=== PATIENT | female | born 1980 ===

== ENCOUNTER 2018-09-15 12:16 | Emergency (ER) | payer BC, OTHER ==
--- NOTE | 2018-09-15 13:37 | UC ---
Respiratory Complaint HPI - HPI Summary HPI Summary: 4 to 5 day history of fever, congestion, increased sinus pain and cough. Progressive laryngitis. Fever has resolved. Other family members with influenza. - History of Current Complaint Chief Complaint: UCRespiratory Stated Complaint: SORE THROAT, COUGH, CONGESTION Time Seen by Provider: 09/15/18 13:29 Hx Obtained From: Patient Hx Last Menstrual Period: "Almost 28 days ago" Onset/Duration: Gradual Onset, Lasting Days - 5 Timing: Constant Severity Initially: Moderate Severity Currently: Moderate Pain Intensity: 0 Character: Cough: Nonproductive Associated Signs And Symptoms: Positive: URI, Nasal Congestion, Hoarseness, Sinus Discomfort - Allergies/Home Medications Allergies/Adverse Reactions: Allergies Allergy/AdvReac Type Severity Reaction Status Date / Time Penicillins Allergy Unknown Verified 09/15/18 13:18 Reaction Details Home Medications: Home Medications Cholecalciferol TAB* [Vitamin D TAB*] 2,000 units PO DAILY 09/15/18 [History Confirmed 09/15/18] Levothyroxine TAB* [Synthroid TAB*] 50 mcg PO DAILY 09/15/18 [History Confirmed 09/15/18] Lisinopril TAB* [Prinivil TAB*] 10 mg PO DAILY 09/15/18 [History Confirmed 09/15] LoraTADine TAB(NF) [Claritin 10 MG TAB(NF)] 10 mg PO DAILY 09/15/18 [History Confirmed 09/15/18] PMH/Surg Hx/FS Hx/Imm Hx Previously Healthy: Yes Endocrine History: Thyroid Disease Cardiovascular History: Hypertension - Surgical History Surgical History: None - Family History Known Family History: Positive: Non-Contributory - Social History Occupation: Employed Full-time Lives: With Family Alcohol Use: Occasionally Substance Use Type: None Smoking Status (MU): Never Smoked Tobacco Review of Systems All Other Systems Reviewed And Are Negative: Yes Constitutional: Positive: Fatigue Skin: Positive: Negative Eyes: Positive: Negative ENT: Positive: Nasal Discharge, Sinus Pain/Tenderness, Other - laryngitis Respiratory: Positive: Cough Cardiovascular: Positive: Negative Gastrointestinal: Positive: Negative Genitourinary: Positive: Negative Motor: Positive: Negative Neurovascular: Positive: Negative Musculoskeletal: Positive: Negative Neurological: Positive: Negative Psychological: Positive: Negative Is Patient Immunocompromised?: No Physical Exam Triage Information Reviewed: Yes Appearance: No Pain Distress, Ill-Appearing - looks mildly unwell Vital Signs: Initial Vital Signs Temp 97.7 F 09/15/18 13:16 Pulse 80 09/15/18 13:16 Resp 16 09/15/18 13:16 BP 120/73 09/15/18 13:16 Pulse Ox 100 09/15/18 13:16 Eyes: Positive: Conjunctiva Clear ENT: Positive: Pharynx normal, Sinus tenderness Dental Exam: Normal Neck: Positive: Supple, Nontender, No Lymphadenopathy Respiratory: Positive: Lungs clear, Normal breath sounds Cardiovascular: Positive: RRR, No Murmur Neurological Exam: Normal Neurological: Positive: Alert, Muscle Tone Normal Psychological Exam: Normal Skin Exam: Normal UC Diagnostic Evaluation - Laboratory O2 Sat by Pulse Oximetry: 100 Respiratory Course/Dx - Course Course Of Treatment: symptomatic treatment of viral illness - Differential Dx/Diagnosis Differential Diagnosis/HQI/PQRI: Influenza, Sinusitis Provider Diagnosis: Viral syndrome Discharge - Sign-Out/Discharge Documenting (check all that apply): Patient Departure All imaging exams completed and their final reports reviewed: No Studies - Discharge Plan Condition: Stable Disposition: HOME Patient Education Materials: Viral Syndrome (ED) Referrals: Annamarie Ahuja [Primary Care Provider] - Additional Instructions: It is likely that you have had flu with complicating sinus pressure, but antibiotics are not indicated at this time. Continue use of over the counter cough suppressants, acetaminophen for pain or recurrent fever. Adding flonase spray and/or saline nose spray will help to relieve sinus pressure; you could also use over the counter phenylephrine as a decongestant. - Billing Disposition and Condition Condition: STABLE Disposition: Home
== END 2018-09-15 14:03 | disposition home or self-care (01) ==
LOC: UCCORT 12:16
DX: B34.9 Viral infection, unspecified (principal); R09.81 Nasal congestion; R09.89 Other specified symptoms and signs involving the circulatory and respiratory systems; R05 Cough; J04.0 Acute laryngitis; I10 Essential (primary) hypertension; E07.9 Disorder of thyroid, unspecified; Z79.899 Other long term (current) drug therapy; Z88.0 Allergy status to penicillin
CPT/HCPCS: 99201; G0463